=== PATIENT | female | born 2000 | race Caucasian/White ===

== ENCOUNTER 2019-01-08 14:17 | Emergency (ER) | payer OTHER ==
[~2019-01-08] VITALS: Ht 157.5 cm; Wt 68.2 kg
[~2019-01-08 14:17] MED LIST: CEPH-443 PO
[2019-01-08 14:29] VITALS: BP 120/62; PULSE 72; RESP 18; Ht 157.5 cm; Wt 68.2 kg
[2019-01-08] MEDS ORDERED: LIDOCAINE 1% (MDV) 10 ML INJ INJ STA (15:07)
--- NOTE | 2019-01-08 15:12 | ERD ---
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 Patient admits to some mild pain. Denies tingling, numbness, lack sensation, decreased range of motion. Patient is also complaining of an ingrown toenail of her left great toe that is been present for the past 2 months. Patient is seeking removal toenail. Tetanus up-to-date. ROS All systems reviewed and are negative except as per history of present illness. Medications Home Meds Active Scripts Sulfamethoxazole/Trimethoprim* (Bactrim Ds* Tablet) 1 Each Tablet, 1 TAB PO BID, #14 TAB Prov:GLADYS REGAN PA-C 01/08/19 Cephalexin* (Keflex*) 500 Mg Capsule, 500 MG PO BID for 7 Days, CAP Prov:SHARON GARCIA PA-C 01/02/19 Allergies Allergies: Coded Allergies: No Known Allergy (Unverified , 01/02/19) PMhx/Soc Hx Alcohol Use: No Hx Substance Use: No Hx Tobacco Use: No FmHx Family History: No diabetes Physical Exam Vitals Vital Signs Date Temp Pulse Resp B/P (MAP) Pulse Ox O2 O2 Flow FiO2 Time Delivery Rate 01/08/19 72 18 120/62 99 14:29 (81) Physical Exam Const: No acute distress Head: Atraumatic Eyes: Normal Conjunctiva ENT: Normal External Ears, Nose and Mouth. Neck: Full range of motion. No meningismus. Resp: Clear to auscultation bilaterally Cardio: Regular rate and rhythm, no murmurs Abd: Soft, non tender, non distended. Normal bowel sounds Skin: There is an ingrown toenail of the left great toe, Back: No midline or flank tenderness Ext: No cyanosis, or edema Upper Extremity - left Skin: Small avulsion of left first digit, no active bleeding Compartments: Soft Motor: Full active range of motion shoulder/elbow/wrist/hand Sensation: Intact shoulder/pinky/middle finger/thumb web space Bones: Nontender humerus/elbow/forearm/wrist/hand Snuffbox: Nontender Joints: No effusion Pulses/Perfusion: 2+ radial, Capillary refill < 2 seconds Radial ulnar median nerve tested for sensory motor deficit without any dysfunc tion. Neur: Awake and alert Psych: Normal Mood and Affect Results 24 hrs Current Medications Medications Dose Sig/Oli Start Time Status Last (Trade) Ordered Route PRN Stop Time Admin Dose Reason Admin Lidocaine 10 ml ONCE STAT 01/08/19 DC HCl INJ 15:07 (Lidocaine 01/08/19 15:08 1% (Mdv) 10 ml) Lidocaine 1 ml ONCE INJ 01/08/19 DC (Xylocaine 15:30 1% (Mdv) 20 01/08/19 15:31 ml) Procedures/MDM PROCEDURES: Toenail Removal by me: Anesthesia: 1% lidocaine Digital Block Location: Left great toe Technique: from nail bed, vertical split, twisting towards remaining nail. Packing: Non-adherent dressing applied Complications: None Recommend bid dressing changes and warm water soaks. ER COURSE: The patient was stable throughout ED course. I kept the patient and/or family informed of laboratory and diagnostic imaging results throughout the emergency room course. The patient was promptly evaluated and a treatment plan was devised based on H&P and other data. This plan was discussed with the patient who agreed and had no further questions or concerns prior to discharge. MEDICAL DECISION MAKING: This is a 18-year-old female who presents ED with left ingrown toenail times 2 months and an partial finger avulsion of left first digit. The left ingrown toenail was excised without complication. Patient was advised to do warm water soaks and to take antibiotics as directed. The avulsion of patient's first digit is very minor and it is not actively bleeding. No evidence of compartment syndrome, neurologic injury, vascular injury, open joint, tendon laceration, fracture, dislocation, or foreign body. Patient's vitals are stable and pt can be managed with close out patient follow up. Advised patient to return to ED or to be seen by primary care for a 48 hour wound check. Return to ED with any worsening symptoms DISPOSITION PLAN: We discussed follow up with the patient's primary care doctor within 24 to 48 hours. Patient counseled regarding my diagnostic impression and care plan. Jennifer or to discharge all questions answered. Pt agrees with treatment plan and understands strict return precautions. Precautionary instructions provided including instructions to return to the ER if not improving or for any worsening or changing symptoms or concerns. SPECIALIST FOLLOW UP RECOMMENDED: None Patient has been advised to follow up with primary care in 1-2 days. Disclaimer: Inadvertent spelling and grammatical errors are likely due to EHR/dictation software use and do not reflect on the overall quality of patient care. Also, please note that the electronic time recorded on this note does not necessarily reflect the actual time of the patient encounter. Departure Diagnosis: Primary Impression: Avulsion of finger Encounter type: initial encounter Qualified Codes: S61.209A - Unspecified open wound of unspecified finger without damage to nail, initial encounter Additional Impression: Ingrown left greater toenail Condition: Stable Patient Instructions: Ingrown Toenail, Excised, Skin Avulsion Referrals: COMM[facility] Additional Instructions: Patient advised to return to the ED immediately for new or worsening symptoms. Patient advised to follow up with primary care provider in the next 24-48 hours. Patient verbalized understanding and agrees with treatment plan and course of action. If patient has no primary care they may follow up with one of the community clinics listed on the following page or one of the options listed below [facility] + [facility] [address] [place] [id number] or [facility] [address] [place] [address] or [facility] [address] [place] [address] GLADYS REGAN PA-C Jan 08, 2019 15:12
[2019-01-08] MEDS ORDERED: LIDOCAINE 1% (MDV) 20 ML INJ INJ SCH (15:30)
[2019-01-08] MEDS ORDERED: SULF1TAB31 PO (16:01)
== END 2019-01-08 16:48 | disposition home or self-care (01) ==
LOC: FTE 14:17
DX: S91.202A Unspecified open wound of left great toe with damage to nail, initial encounter (principal); L60.0 Ingrowing nail; W26.8XXA Contact with other sharp object(s), not elsewhere classified, initial encounter; Y92.9 Unspecified place or not applicable
CPT/HCPCS: 11750; Z7502; Z7610

== ENCOUNTER 2019-02-08 13:49 | Emergency (ER) | payer OTHER ==
[~2019-02-08] VITALS: Ht 167.6 cm; Wt 75.7 kg
[~2019-02-08 13:49] MED LIST changes: +SULF1TAB31 PO
[2019-02-08 14:21] VITALS: BP 119/64; PULSE 84; RESP 20; Ht 167.6 cm; Wt 75.7 kg
[2019-02-08] MEDS ORDERED: LIDOCAINE 1% (MPF) 5 ML VIAL INJ ONE (16:30)
[2019-02-08] MEDS ORDERED: ACET500C5 PO (16:53)
[2019-02-08] MEDS ORDERED: CEPH-443 PO (16:53)
--- NOTE | 2019-02-08 18:03 | ERD ---
ER Documentation Chief Complaint Chief Complaint Complains of left toe pain HPI 18-year-old female patient with past medical history of ingrown toenails presents to the ED complaining of left great toe pain that occurred a few days ago. Patient denies stubbing her toe or any injuries or trauma. Denies any fever, chills, loss sensation, loss of range of motion. Patient reports that there is some increased redness and swelling. States that she cut her toenails too short. Patient rates her pain a 10 out of 10 and describes it as sharp. 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 ROS All systems reviewed and are negative except as per history of present illness. Medications Home Meds Active Scripts Acetaminophen* (Tylophen*) 500 Mg Capsule, 1 CAP PO Q6H PRN for PAIN AND OR ELEVATED TEMP, #20 CAP Prov:SASHA PACHECO PA-C 02/08/19 Cephalexin* (Keflex*) 500 Mg Capsule, 500 MG PO QID for 7 Days, CAP Prov:SASHA PACHECO PA-C 02/08/19 Sulfamethoxazole/Trimethoprim* (Bactrim Ds* Tablet) 1 Each Tablet, 1 TAB PO BID, #14 TAB Prov:GLADYS REGAN PA-C 01/08/19 Cephalexin* (Keflex*) 500 Mg Capsule, 500 MG PO BID for 7 Days, CAP Prov:SHARON GARCIAC 01/02/19 Allergies Allergies: Coded Allergies: No Known Allergy (Unverified , 01/02/19) PMhx/Soc Medical and Surgical Hx: pt denies Medical Hx, pt denies Surgical Hx Hx Alcohol Use: No Hx Substance Use: No Hx Tobacco Use: No FmHx Family History: No diabetes, No coronary disease Physical Exam Vitals Vital Signs Date Temp Pulse Resp B/P (MAP) Pulse Ox O2 O2 Flow FiO2 Time Delivery Rate 02/08/19 98.4 84 20 119/64 99 14:21 (82) Physical Exam Const: [id number], well-nourished. In no acute distress. Head: Atraumatic, normocephalic Eyes: Normal Conjunctiva without injection ENT: Normal external ear, nose and mouth. Neck: Full range of motion. No meningismus. Resp: Clear to auscultation bilaterally. No wheezing, rhonchi, rales, or crackles. No accessory muscle use. No retractions. Cardio: Regular rate and rhythm, no murmurs Skin: No petechiae or rashes Back: No midline tenderness. No CVA tenderness. Ext: No cyanosis, or edema. Cap refill less than 2 seconds. Distal pulses intact bilaterally. Left great toe ingrown toenail. Slight surrounding erythema with some purulent discharge noted at the medial aspect of patient's left great toe. No paronychia noted. Patient is IP, MTP joints full range of motion bilaterally. Neur: Awake and alert. Normal gait and coordination. Muscle strength 5/5. Sensation intact bilaterally. Psych: Normal Mood and Affect Results 24 hrs Current Medications Medications Dose Sig/Oli Start Time Status Last (Trade) Ordered Route PRN Stop Time Admin Dose Reason Admin Lidocaine 5 ml ONCE ONCE 02/08/19 DC (Xylocaine INJ 16:30 1% (Mpf)) 02/08/19 16:31 Procedures/MDM 18-year-old female patient presents to ED complaining of left toe pain due to ingrown toenail. Patient is afebrile and nontoxic-appearing. Patient's left great toe, applied Betadine sterile toe, digital block was performed using 5 cc of 1% lidocaine. The medial aspect of patient's left great toe ingrown toenail was removed, 1 cm in size with no complications or difficulty. Patient gautam erated the procedure. Patient's extremity symptoms have stabilized while they have been evaluated in the department and are appropriate for outpatient follow up. No evidence of fractures, dislocations, compartment syndrome, neurologic injury, vascular inj ury, open joint, open fracture, tendon laceration, septic arthritis, osteomyelitis, DVT, foreign body, or other emergent conditions. Diagnosis: Ingrown nail of great toe of left foot Discharge medications: Tylenol, Keflex Follow up with primary care physician in 1-2 days. Instructed patient to return to the ED sooner for any worsening symptoms. Patient's questions were answered. Patient is hemodynamically stable. Patient understood and agreed with discharge plan. Patient discharged stable. Disclaimer: Inadvertent spelling and grammatical errors are likely due to EHR/dictation software use and do not reflect on the overall quality of patient care. Also, please note that the electronic time recorded on this note does not necessarily reflect the actual time of the patient encounter. Departure Diagnosis: Primary Impression: Ingrown nail of great toe of left foot Condition: Stable Patient Instructions: Ingrown Toenail, Excised Referrals: [facility] YOU HAVE RECEIVED A MEDICAL SCREENING EXAM AND THE RESULTS INDICATE THAT YOU DO NOT HAVE A CONDITION THAT REQUIRES URGENT TREATMENT IN THE EMERGENCY DEPARTMENT. FURTHER EVALUATION AND TREATMENT OF YOUR CONDITION CAN WAIT UNTIL YOU ARE SEEN IN YOUR DOCTORS OFFICE WITHIN THE NEXT 1-2 DAYS. IT IS YOUR RESPONSIBILITY TO MAKE AN APPOINTMENT FOR FOLOW-UP CARE. IF YOU HAVE A PRIMARY DOCTOR --you should call your primary doctor and schedule an appointment IF YOU DO NOT HAVE A PRIMARY DOCTOR YOU CAN CALL OUR PHYSICIAN REFERRAL HOTLINE AT IF YOU CAN NOT AFFORD TO SEE A PHYSICIAN YOU CAN CHOSE FROM THE FOLLOWING [facility] [address] [facility]. [facility] [address] [facility]. [facility] [address] [facility] [address] [facility]. [facility] [address] [facility]. [facility] [address] [facility]. [facility] YOU HAVE RECEIVED A MEDICAL SCREENING EXAM AND THE RESULTS INDICATE THAT YOU DO NOT HAVE A CONDITION THAT REQUIRES URGENT TREATMENT IN THE EMERGENCY DEPARTMENT. FURTHER EVALUATION AND TREATMENT OF YOUR CONDITION CAN WAIT UNTIL YOU ARE SEEN IN YOUR DOCTORS OFFICE WITHIN THE NEXT 1-2 DAYS. IT IS YOUR RESPONSIBILITY TO MAKE AN APPOINTMENT FOR FOLOW-UP CARE. IF YOU HAVE A PRIMARY DOCTOR --you should call your primary doctor and schedule and appointment IF YOU DO NOT HAVE A PRIMARY DOCTOR YOU CAN CALL OUR PHYSICIAN REFERRAL HOTLINE AT . IF YOU CAN NOT AFFORD TO SEE A PHYSICIAN YOU CAN CHOSE FROM THE FOLLOWING [facility] INSTITUTIONS: [facility] [address] [place] [address] [facility] [address] [place] [address] [facility] + [facility] [address] [place] [address] [facility] URGENT C[facility]/SPECIALTIES Additional Instructions: Llame Podlogo MAANA y richi maxwell LEONA PARA DENTRO DE 2-3 PEDERSON.Dgale a la secretaria que nosotros le instruimos hacer esta leona.Avise o llame si wolf condic in se empeora antes de la leona. Regresa aqui si peor o no mejor. WOUND CHECK:CONSULTE A WOLF MDICO EN 2 torrez para shikha WOLF HERIDA. SASHA PACHECO PA-C Feb 08, 2019 18:03
== END 2019-02-08 17:07 | disposition home or self-care (01) ==
LOC: FTE 13:49
DX: L60.0 Ingrowing nail (principal)
CPT/HCPCS: 11765; Z7610